=== PATIENT | male | born 1960 | race Caucasian/White ===

== ENCOUNTER 2018-11-20 08:25 | Day surgery (SDC) | payer OTHER, SELFPAY ==
[2018-11-20 08:46] VITALS: BP 154/103; PULSE 89; RESP 16; TEMP 36.4; O2SAT 100
[2018-11-20] MEDS: Lactated Ringers 1,000 ML 30 ML IV (09:16)
--- NOTE | 2018-11-20 12:04 | BOWEL_PTH ---
PATIENT: Seymour Guthrie LOC: [facility] U#:[id number] AGE/SX: 57/M ROOM: RE11/20/[address]: Franklin Diamond DO : 1960 BED: DIS: 11/20/2018 SPEC #: [id number] RECD: 11/20/18 13:10 STATUS: PRERNA REQ #: [id number] EMIR: 11/20/18 12:[address]: Franklin Diamond DEPT: Surgical Specimen RECD BY: Jazzy Bella ENTERED: 11/20/18 13:11 SP TYPE: Bowel OTHR DR: Dexter Renee MD Tissues: 1 - BIOPSY BOWEL Procedures: GROSS AND MICRO LEVEL 4 Comments: [id number]
--- NOTE | 2018-11-20 12:16 | W.COLOREPORT ---
Date of service: 11/20/18 Time of Service: 11:50 Colonoscopy Report Date of procedure: 11/20/18 Pre-op diagnosis general: Colorectal Cancer screening Post-op diagnosis procedure note: other (Rectal Polyp) Procedure: Colonoscopy to the cecum with biopsy by cold forceps Surgeon: Franklin Diamond Anesthesia proc note operative: MAC (Irving Silva, COTTON GINNER HELPER: ASA 2 Mallampati class II) Estimated blood loss (mL): 1 Pathology: other (Rectal polyp) Complications: None Disposition: same day Indications: 57-year-old male presenting for colorectal cancer screening by colonoscopy. He has been asymptomatic, and has no family history of colorectal cancer. The risks of the procedure have been discussed with him. All his questions been answered to his satisfaction. Consents been obtained to proceed with colonoscopy. Prep: Miralax/Dulcolax (Bowel Prep excellent) Findings: In examining the colon from cecum to anus. No abnormalities are noted of the colon. A less than 1 cm in greatest diameter polyp was identified in the rectum, and subsequently removed by cold biopsy forceps. No other abnormalities are noted of the rectum or anorectal junction. Procedure Description: The patient was seen in the day surgery waiting area. His identification was confirmed, and procedure checked. He was then brought to the procedure room. Monitoring for telemetry, blood pressure, oxygen saturation, and end tidal CO2 monitoring were applied. An appropriate time out was performed to confirm, identification, allergies, medication, procedure, was performed. Sedation was titrated for affect by the COTTON GINNER HELPER; Once adequate sedation was achieved, I performed a inspection of the external perineum, and a digitial rectal examination. No significant external abnormalities were noted. On digital rectal examination, there was no blood, no masses, good rectal tone, and a normal prostate. I advanced the colonoscope from the anus to the cecum under direct visualization. The cecum was identified by the ileal-cecal valve, and the appendiceal orifice. The scope was then withdrawn in circumferential manner from the cecum to the rectum. No abnormalites were noted in the colon. The scope was then withdrawn into the rectum, and a less than 1 cm in greatest diameter polyp was identified, subsequently removed by cold biopsy forceps. Scope was then retroflexed, and no other abnormalities were noted of the rectum or anorectal junction. The scope was then withdrawn, terminating the procedure. There were no complications during the procedure, and the patient tolerated the procedure well. He was returned to the day surgery recovery area in good condition. Plan: We will await pathology before making further recommendations.
--- NOTE | 2018-11-20 12:21 | COLE_ITS ---
Date of service: 11/20/18 Time of Service: 11:50 Colonoscopy Report Date of procedure: 11/20/18 Pre-op diagnosis general: Colorectal Cancer screening Post-op diagnosis procedure note: other (Rectal Polyp) Procedure: Colonoscopy to the cecum with biopsy by cold forceps Surgeon: Franklin Diamond Anesthesia proc note operative: MAC (Irving Silva, PAINTING INSTRUCTOR: ASA 2 Mallampati class II) Estimated blood loss (mL): 1 Pathology: other (Rectal polyp) Complications: None Disposition: same day Indications: 57-year-old male presenting for colorectal cancer screening by colonoscopy. He has been asymptomatic, and has no family history of colorectal cancer. The risks of the procedure have been discussed with him. All his questions been answered to his satisfaction. Consents been obtained to proceed with colonoscopy. Prep: Miralax/Dulcolax (Bowel Prep excellent) Findings: In examining the colon from cecum to anus. No abnormalities are noted of the colon. A less than 1 cm in greatest diameter polyp was identified in the rectum, and subsequently removed by cold biopsy forceps. No other abnormalities are noted of the rectum or anorectal junction. Procedure Description: The patient was seen in the day surgery waiting area. His identification was confirmed, and procedure checked. He was then brought to the procedure room. Monitoring for telemetry, blood pressure, oxygen saturation, and end tidal CO2 monitoring were applied. An appropriate time out was performed to confirm, identification, allergies, medication, procedure, was performed. Sedation was titrated for affect by the PAINTING INSTRUCTOR; Once adequate sedation was achieved, I performed a inspection of the external perineum, and a digitial rectal examination. No significant external abnormalities were noted. On digital rectal examination, there was no blood, no masses, good rectal tone, and a normal prostate. I advanced the colonoscope from the anus to the cecum under direct visualization. The cecum was identified by the ileal-cecal valve, and the appendiceal orifice. The scope was then withdrawn in circumferential manner from the cecum to the rectum. No abnormalites were noted in the colon. The scope was then withdrawn into the rectum, and a less than 1 cm in greatest diameter polyp was identified, subsequently removed by cold biopsy forceps. Scope was then retroflexed, and no other abnormalities were noted of the rectum or anorectal junction. The scope was then withdrawn, terminating the procedure. There were no complications during the procedure, and the patient tolerated the procedure well. He was returned to the day surgery recovery area in good condition. Plan: We will await pathology before making further recommendations.
[2018-11-20 12:42] VITALS: BP 132/90; PULSE 64; RESP 16; TEMP 36.6; O2SAT 100
--- NOTE | 2018-11-20 18:57 | W.PM.DSUDISC ---
Discharge Plan Disposition Patient Disposition: HOME Condition: Good Discharge Details Reason For Visit: SCREENING Attending Provider: Franklin Diamond Primary Care Provider: Dexter Renee Home Meds and New Rx's Prescriptions: Continued lisinopril-hydrochlorothiazide 10-12.5 mg tablet 1 tab PO DAILY Qty: 90 RF: 3 ascorbic acid (vitamin C) [[place] C] 500 MG tablet,chewable 2 tab PO DAILY RF: 0 cholecalciferol (vitamin D3) [Vitamin D3] 1,000 UNIT tablet,chewable 1,000 unit PO DAILY RF: 0 gn-gut-gmndt acid-lutein 1 EACH tablet,chewable 2 ea PO DAILY RF: 0 aspirin 81 mg Tablet,Chewable 81 mg PO DAILY RF: 0 Discontinued bisacodyl [Dulcolax (bisacodyl)] 5 mg tablet,delayed release (DR/EC) 5 mg PO ONCE Qty: 4 RF: 0 polyethylene glycol 3350 17 gram/dose powder 255 g PO ONCE Qty: 255 RF: 0 Discharge Instructions Instructions: Colonoscopy (DC) Stand Alone Forms: Colonoscopy Post Instructions, [place] (DSU) Activity:: Activity as Tolerated Diet:: As Tolerated Discharge Orders Discharge Orders: Discharge Order (Routine); Ordered 11/20/18 Ordered By: Franklin Diamond Discharge Data Discharge Date/Time-TO BE ENTERED AT DEPARTURE: 11/20/18 13:00 DS: Diagnosis Discharge Diagnosis (1) Encounter for screening colonoscopy: Status: Resolved Asessment and Plan: Colonoscopy performed
== END 2018-11-20 13:00 | disposition home or self-care (01) ==
PROVIDERS: PCP Family Medicine; Visit Provider Surgery
PROC: 0DJD8ZZ Inspection of Lower Intestinal Tract, Via Natural or Artificial Opening Endoscopic (ICD-10-PCS; CPT 45378; principal; 2018-11-20 10:15)
DX: K62.1 Rectal polyp (principal); Z12.11 Encounter for screening for malignant neoplasm of colon
CPT/HCPCS: 45380; 88305

== ENCOUNTER 2019-02-11 02:34 | Outpatient (CLI) | payer OTHER, SELFPAY ==
[2019-02-11 10:49] LABS: CREATININE 1.17 mg/dL (0.70-1.30); Cholesterol 213 mg/dL (50-200); HDL Cholesterol 52 mg/dL (40-60); LDL CHOLESTEROL 139 mg/dL (<100); Potassium 4.2 mmol/L (3.5-5.1); Triglyceride 71 mg/dL (30-150)
== END 2019-02-11 02:54 ==
PROVIDERS: PCP Family Medicine; Visit Provider Family Medicine
DX: Z00.00 Encounter for general adult medical examination without abnormal findings (principal)
CPT/HCPCS: 36415; 80061; 83721; 82565; 84132

== ENCOUNTER 2020-09-27 08:59 | Outpatient (CLI) | payer OTHER, SELFPAY ==
[2020-09-27 13:36] LABS: Calculated LDL 157 mg/dL (<100); Cholesterol 230 mg/dL (<200); HDL Cholesterol 62 mg/dL (40-60); Potassium 4.1 mmol/L (3.5-5.1); Triglyceride 56 mg/dL (<150)
[2020-09-28 16:02] LABS: PSA, Screening 2.1 ng/mL (0-3.5)
== END 2020-09-27 09:19 ==
PROVIDERS: PCP Family Medicine; Visit Provider Family Medicine
DX: I10 Essential (primary) hypertension (principal); E78.5 Hyperlipidemia, unspecified; Z12.5 Encounter for screening for malignant neoplasm of prostate
CPT/HCPCS: 36415; 80061; 84153; 82565; 84132

== ENCOUNTER 2021-09-28 09:51 | Outpatient (CLI) | payer OTHER, SELFPAY ==
[2021-09-28 13:08] LABS: CREATININE 1.3 mg/dL (0.70-1.30); Calculated LDL 148 mg/dL (<100); Cholesterol 223 mg/dL (<200); Estimated GFR 56.31 (mL/min/1.73m2); Glucose 120 mg/dL (74-106); HDL Cholesterol 63 mg/dL (40-60); Potassium 3.9 mmol/L (3.5-5.1); Triglyceride 62 mg/dL (<150)
== END 2021-09-28 09:52 | disposition home or self-care (01) ==
LOC: LOS 09:51
PROVIDERS: PCP Family Medicine; Visit Provider Family Medicine
DX: I10 Essential (primary) hypertension (principal); E78.5 Hyperlipidemia, unspecified; R73.9 Hyperglycemia, unspecified
CPT/HCPCS: 36415; 80061; 82947; 82565; 84132

== ENCOUNTER 2021-10-24 01:30 | Outpatient (CLI) | payer OTHER, SELFPAY | END 2021-10-24 01:31 | disposition home or self-care (01) | LOC: LOS 01:30 | PROVIDERS: PCP Family Medicine; Visit Provider Family Medicine | DX: R73.9 Hyperglycemia, unspecified (principal) | CPT/HCPCS: 36415; 83036 ==

== ENCOUNTER 2022-10-01 03:48 | Outpatient (CLI) | payer OTHER, SELFPAY ==
[2022-10-01 08:35] LABS: CREATININE 1.2 mg/dL (0.70-1.30); Potassium 4.7 mmol/L (3.5-5.1)
[2022-10-02 10:20] LABS: Lab Add On Test DONE
[2022-10-02 10:36] LABS: Calculated LDL 135 mg/dL (<100); Cholesterol 212 mg/dL (<200); HDL Cholesterol 68 mg/dL (40-60); Triglyceride 46 mg/dL (<150)
== END 2022-10-01 03:49 | disposition home or self-care (01) ==
LOC: LBO 03:48
PROVIDERS: Nurse Practitioner Family; PCP Family Medicine; Visit Provider Family Medicine
DX: I10 Essential (primary) hypertension (principal); Z12.5 Encounter for screening for malignant neoplasm of prostate
CPT/HCPCS: 36415; 80061; 82565; 84132

== ENCOUNTER 2023-10-28 08:24 | Outpatient (CLI) | payer OTHER, SELFPAY ==
[2023-10-28 13:23] LABS: CREATININE 1.4 mg/dL (0.70-1.30); Calculated LDL 116 mg/dL (<100); Cholesterol 196 mg/dL (<200); Estimated GFR 56.83 (mL/min/1.73m2); HDL Cholesterol 67 mg/dL (40-60); Potassium 4.1 mmol/L (3.5-5.1); Triglyceride 65 mg/dL (<150)
== END 2023-10-28 08:25 | disposition home or self-care (01) ==
PROVIDERS: PCP Family Medicine; Visit Provider Family Medicine
DX: I10 Essential (primary) hypertension (principal); E78.5 Hyperlipidemia, unspecified
CPT/HCPCS: 36415; 80061; 82565; 84132

== ENCOUNTER 2024-11-08 03:06 | Outpatient (CLI) | payer OTHER, SELFPAY ==
[2024-11-08 12:48] LABS: Glucose 101 mg/dL (74-106)
[2024-11-08 18:24] LABS: PSA, Screening 1.5 ng/mL (<=4.5)
== END 2024-11-08 03:07 | disposition home or self-care (01) ==
LOC: LOS 03:06
PROVIDERS: PCP Family Medicine; Visit Provider Family Medicine
DX: Z12.5 Encounter for screening for malignant neoplasm of prostate (principal); R73.9 Hyperglycemia, unspecified
CPT/HCPCS: 36415; 82947; 84153

== ENCOUNTER 2025-11-15 07:11 | Outpatient (CLI) | payer OTHER, SELFPAY ==
[2025-11-15 13:44] LABS: HCT 43.6 % (40.0-50.0); HGB 14.8 g/dL (13.5-17.5); MCH 31.8 pg (27.0-33.0); MCHC 33.9 % (32.0-36.0); MCV 94 fL (80-95); MPV 10.6 fL (8.0-11.0); Platelet Count 186 10^3/uL (130-400); RBC 4.66 10^6/uL (4.36-5.78); RDW 12.1 % (11.8-14.1); RDW-SD 41.4 fL; WBC 4.46 10^3/uL (4.4-10.8)
[2025-11-15 14:03] LABS: ALT 19 U/L (10-49); AST 31 U/L (<34); Albumin 4.6 g/dL (3.2-5.0); Alkaline Phosphatase 53 U/L (46-116); Bilirubin, Direct 0.3 mg/dL (<=0.3); Bilirubin, Total 1.0 mg/dL (0.2-1.2); Cholesterol 168 mg/dL (<200); HDL Cholesterol 67 mg/dL (>or=40); Potassium 3.8 mmol/L (3.5-5.1); Total Protein 7.3 g/dL (5.7-8.2)
== END 2025-11-15 07:12 | disposition home or self-care (01) ==
PROVIDERS: PCP Family Medicine; Visit Provider Family Medicine
DX: I10 Essential (primary) hypertension (principal); Z13.220 Encounter for screening for lipoid disorders; R53.83 Other fatigue; G72.89 Other specified myopathies
CPT/HCPCS: 36415; 80061; 80076; 85027; 82565; 84132